=== PATIENT | female | born 1980 | race Caucasian/White ===

== ENCOUNTER 2024-02-29 06:44 | Observation (INO) ==
[2024-02-29] MEDS ORDERED: oxyCODONE SR 10 mg TAB ONE (07:22)
[2024-02-29] MEDS ORDERED: Ondansetron 4 mg VIAL 2 MG/ML 2 ml VIAL ONE (07:23)
[2024-02-29] MEDS ORDERED: Scopolamine 1 mg/72hr PATCH ONE (07:23)
[2024-02-29] MEDS ORDERED: Clindamycin 900 MG/50 **NS BAG 900 MG/50 ML BAG ONE (07:23)
[2024-02-29 07:30] LABS: ABS Basophils 0.1 10^3/uL (0.0-0.1); ABS Eosinophils 0.1 10^3/uL (0.0-0.5); ABS Lymphocytes 2.9 10^3/uL (1.0-4.8); ABS Monocytes 0.7 10^3/uL (0.0-0.9); ABS Neutrophils 4.6 10^3/uL (1.5-7.6); Eosinophil % 1.6 %; Hematocrit 33.4 % (35-45); Hemoglobin 11.6 g/dL (11.5-14.3); Lymphocyte % 34.8 %; Mean Corpuscular Hgb Conc 34.7 g/dL (31-36); Mean Corpuscular Volume 89.4 fL (80-97); Mean Platelet Volume 7.3 fL (7.5-11.2); Platelet Count 278 10^3/uL (150-450); Red Blood Count 3.74 10^6/uL (3.63-4.92); White Blood Count 8.3 10^3/uL (3.8-11.8)
[2024-02-29 07:45] LABS: Activated Partial Thrombo Time 29.6 seconds (26.0-38.0); INR 1.14 (0.83-1.13)
[2024-02-29 08:02] LABS: Anion Gap 7 mmol/L (2-16); Blood Urea Nitrogen 9 mg/dL (6-24); CO2 Carbon Dioxide 22 mmol/L (22-32); Calcium 9.1 mg/dL (8.6-10.3); Chloride 109 mmol/L (101-111); Creatinine, Serum 0.76 mg/dL (0.51-0.95); Glucose 93 mg/dL (70-100); Potassium 3.7 mmol/L (3.5-5.0); Sodium 138 mmol/L (135-145)
[2024-02-29] MEDS ORDERED: Iohexol 350 (CONTRAST) 100 ML PAK IV ONE (08:02)
[2024-02-29] MEDS ORDERED: Heparin 2 UNITS/ML IVPREMIX 2,000 UNIT/1,000 ML BAG IV ONE (08:02)
[2024-02-29] MEDS ORDERED: Lidocaine 1% VIAL 10 MG/ML 30 ML VIAL ONE (08:02)
[2024-02-29 08:10] LABS: HCG Pregnancy < 0.60 mIU/mL
[2024-02-29] MEDS ORDERED: Midazolam 5 mg/5 ml VIAL 1 mg/ml 5 ml VIAL (5 mg) ONE (08:15)
[2024-02-29] MEDS ORDERED: fentaNYL 250 mcg/5 ml 50 MCG/ML 5 ml VIAL (250 MCG) ONE (08:15)
[2024-02-29] MEDS ORDERED: nitroGLYCERIN DRIP 25,000 MCG/250 ML BTL ONE (08:15)
[2024-02-29] MEDS ORDERED: Flumazenil 0.5 mg/5 ml 0.1 MG/ML 5 ml VIAL IV PRN (08:24)
[2024-02-29] MEDS ORDERED: Naloxone 0.4 mg VIAL 0.4 mg/ml 1 ml VIAL IV PUSH PRN (08:24)
[2024-02-29] MEDS ORDERED: HYDROmorphone 0.5 MG/0.5 ML SYRINGE ONE ×2 (09:35→09:55)
[2024-02-29] MEDS: fentaNYL 100 mcg/2 ml 50 MCG/ML VIAL IV SLOW PU ONE (09:55)
[2024-02-29] MEDS: Midazolam 10 mg/10 ml VIAL 1 mg/ml 10 ml VIAL (10 mg) IV SLOW PU ONE (09:56)
[2024-02-29] MEDS ORDERED: Prochlorperazine 5 mg/ml 2 ml VIAL (10 mg) ONE (10:15)
[2024-02-29] MEDS ORDERED: HYDROmorphone 1 MG/1 ML SYRINGE ONE ×2 (10:15→11:29)
[2024-02-29] MEDS: Prochlorperazine 5 mg/ml 2 ml VIAL (10 mg) IV ONE (10:23)
[2024-02-29] MEDS: NS 0.9% 1000 ml BAG 1,000 ML IV SCH (10:24)
[2024-02-29] MEDS: HYDROmorphone 0.5 MG/0.5 ML SYRINGE IV PRN (10:25)
[2024-02-29] MEDS ORDERED: diazePAM INJ CARPUJECT 5 MG/ML SYRINGE IV PRN (11:15)
[2024-02-29] MEDS: HYDROmorphone 0.5 MG/0.5 ML SYRINGE IV SLOW PU ONE (11:31)
[2024-02-29] MEDS: Prochlorperazine 5 mg/ml 2 ml VIAL (10 mg) IV PRN (12:30)
[2024-02-29] MEDS: Ondansetron 4 mg VIAL 2 MG/ML 2 ml VIAL IV SCH (15:05)
[2024-02-29 15:13] LABS: Urine Appearance Clear; Urine Bilirubin Negative (Negative); Urine Blood 2+ (Negative); Urine Color Light-Yellow; Urine Glucose Negative (Negative); Urine Ketones Negative (Negative); Urine Nitrite Negative (Negative); Urine Protein Negative (Negative); Urine Specific Gravity 1.024 (1.002-1.030); Urine Urobilinogen Negative (Negative)
[2024-02-29 15:44] LABS: Urine Bacteria Absent /HPF (Absent); Urine Red Blood Cell 3+(>10/hpf) /HPF (0-Trace); Urine White Blood Cell Trace(0-5/hpf) /HPF (0-Trace)
[2024-03-01] MEDS ORDERED: HYDROcodone/ACETAMIN 5/325 mg TAB PO PRN (08:56)
[2024-03-01] MEDS: Ketorolac 10 mg TAB (NF) PO SCH (09:02)
[2024-03-01 10:29] VITALS: BP 96/54
[2024-03-01] MEDS ORDERED: Ketorolac 10 mg TAB (NF) PO SCH (12:00)
== END 2024-03-01 11:30 | disposition home or self-care (01) ==
LOC: CHICATH 06:44 → SSU 06:44 → SUATTDRO 11:57
PROVIDERS: ADMIT Radiology Diagnostic Radiology; ATTEND Student in an Organized Health Care Education/Training Program
PROC: ANG.UFE (2024-02-29 08:15)